=== PATIENT | female | born 2000 | race Caucasian/White ===

== ENCOUNTER 2018-01-15 16:28 | Outpatient (CLI) | payer OTHER, SELFPAY ==
[2018-01-15 16:43] VITALS: BMI 28.1
--- NOTE | 2018-01-15 17:00 | OB.TRI.NOTE ---
- Problem List (1) Vaginal bleeding during , antepartum Status: Acute History of Present Illness Date of Service: 01/15/18 Was patient seen by the physician?: Yes Reason For Visit: BLEEEDING Date of Service: 01/15/18 Final MOHIT: 02/23/18 Final MOHIT Source: US <20 weeks Gestational age: 34 Weeks and 3 Days History of Present Illness: Patient is a At 34.3 wks presenting for heavy postcoital vaginal bleeding. Patient reports a history of placenta previa during this though her last ultrasound at 31+ weeks shows fundal placenta. Patient reports +FM, denies LOF or regular uterine cramping. Patient reports onset of bright heavy red bleeding that soaked through underwear and with wiping. Patient denies passage of large blood clots. Bleeding mostly noted with wiping. Allergies No Known Allergies Allergy (Verified 01/15/18 17:03) - Pertinent Past Medical History Pertinent Past Medical History: See [facility] Record Review of Systems Constitutional: Denies: Chills, Fever, Weight Change HEENT: Denies: Head Aches, Sinus Congestion, Sinus Drainage Cardiovascular: Denies: Chest Pain, Palpitations Respiratory: Denies: Cough, Shortness of breath at rest, Sputum production Gastrointestinal: Denies: Abdominal Pain, Nausea, Vomiting Genitourinary: Denies: Dysuria Gynecological: Reports: Vaginal bleeding Musculoskeletal: Denies: Joint Pain, Joint Tenderness Skin: Denies: Rash, Wounds Neurological: Denies: Numbness, Tingling, Focal weakness Psychiatric: Denies: Anxiety, Depression, Homicidal Ideations, Suicidal Ideations Hematologic/ Lymphatic: Denies: Easy Bruising, Easy Bleeding Physical Exam Vitals: See Nursing Notes for Vitals - VSS, Afebrile General: Alert, Oriented x3, No apparent distress HEENT: Atraumatic, Normocephalic. Negative for: Thyromegaly, Lymphadenopathy Cardiovascular: Regular rate, Regular Rhythm Lungs: Normal air movement Abdomen: Soft, Non Tender, Gravid, Appropriate for Gestational Age - EFW = 4.5# Neurological: Deep Tendon Reflexes 2+/4 and Symmetrical, Neuro grossly intact NEUROLOGY MANAGER: Normal external genitalia. Negative for: Vulvar lesions Cervix Dilation (cm): 0 - Closed by SSE Station: -3 Effacement (%): 0 - +blood in vault and few small clots, no bleeding coming out of cervix NST - FHR Rate Baby A Baseline: 135 Variability:: Moderate Accelerations:: 15 x 15 Decelerations:: None NST Reactive:: Appropriate for gestational age FHR Category:: Category I Uterine Activity:: No contractions noted on tocometer, uterine irritability rarely noted Impression/Plan 17 y/o @ 34+ weeks, postcoital bleeding, Cat I FHT P: 1) Plan for prolonged monitoring x 2 hours 2) Bleeding precautions reviewed, recommend pelvic rest for 1-2 weeks 3) Anticipate discharge to home with continued Cat I FHT Jessica YATES
== END 2018-01-15 19:00 | disposition home or self-care (01) ==
LOC: WPOUT 16:37 → WP 16:38
PROVIDERS: Visit Provider Advanced Practice Midwife
DX: O46.8X3 Other antepartum hemorrhage, third trimester (principal); Z3A.34 34 weeks gestation of pregnancy
CPT/HCPCS: 59025; 99218; G0378

== ENCOUNTER 2018-02-08 16:51 | Inpatient (IN) | payer OTHER, SELFPAY ==
[2018-02-08 17:34] VITALS: BMI 27.3
[2018-02-08] MEDS: Lactated Ringers 1,000 ML 50 ML IV (17:45)
[2018-02-08 17:54] LABS: ROM Internal Control Test YES-OK TO RESULT pt. (Internal QC)
[2018-02-08 17:55] LABS: ROM Patient Test POSITIVE (Negative)
--- NOTE | 2018-02-08 18:28 | PCM.HP.OB ---
History Date of Admission: 02/08/18 Final MOHIT: 02/23/18 Final MOHIT Source: US <20 weeks Gestational age: 37 Weeks and 6 Days History of this : This is a 17 year-old, G [1], P [0], at 37 weeks gestational age presenting to triage for evaluation of SROM @ 1600 for clear fluid. Patient soon after started to have regular ctx and was noted to be 7/80/0 and then quickly progressed to 9/100/+1. course uncomplicated, patient initiated care in 1st trimester x 12 visits. Medical History: Medical History (Last Updated 02/08/18 @ 18:41 by Jessica Woodall CNM) Positive GBS test B95.1 Rubella non-immune status, antepartum O99.89, Z28.3 Seizure disorder G40.909 Allergies No Known Allergies Allergy (Verified 01/15/18 17:03) Home Medications: Home Medications Ferrous Sulfate [Iron] 325 mg PO DAILY 01/15/18 Tablet 1 tab PO DAILY 01/15/18 Ranitidine [Zantac] 150 mg PO DAILY 01/15/18 Smoking Status: Former smoker Alcohol: None Number of Fetus(es): 1 Heart Tracin baseline, moderate variability, + accels, early decels heard during ctx TOCO Analysis: Ctx q 2-3 minutes, palpate moderate to strong History Past Pregnancies: Past Pregnancies Delivery Date Name GA/Weeks Outcome Route Weight Gender Labor Length Anesthesia Delivery Location Provider FOB Labs: O+, Abs Neg, HIV Neg, HepBsAg Neg, Syphilis Neg, GBS positive, Urine tox negative, urine culture negative, GC/CT = neg/neg x 2 (hx of + chlamydia in 1st trimester), 1 hour GTT = 85, H/H = 12.1 --> 10.6 Expected Infant Delivery Method: Spontaneous Vaginal Describe any other labor & delivery plans:: Natural Labor Number of Visits: 12 Review of Systems Constitutional: Denies: Chills, Fever, Weight Change HEENT: Denies: Head Aches, Sinus Congestion, Sinus Drainage Cardiovascular: Denies: Chest Pain, Palpitations Respiratory: Denies: Cough, Shortness of breath at rest, Sputum production Gastrointestinal: Reports: Abdominal Pain. Denies: Nausea, Vomiting Genitourinary: Denies: Dysuria Gynecological: Reports: Vaginal bleeding - c/w bloody show, Vaginal discharge - c/w clear amniotic fluid Musculoskeletal: Denies: Joint Pain, Joint Tenderness Skin: Denies: Rash, Wounds Neurological: Denies: Numbness, Tingling, Focal weakness Psychiatric: Denies: Anxiety, Depression, Homicidal Ideations, Suicidal Ideations Hematologic/ Lymphatic: Denies: Easy Bruising, Easy Bleeding Physical Exam Vitals: See nurse's notes for vital signs General: Alert, Oriented x3, No apparent distress HEENT: Atraumatic, Normocephalic. Negative for: Thyromegaly, Lymphadenopathy Cardiovascular: Regular rate, Regular Rhythm Lungs: Normal air movement Abdomen: Non Tender, Gravid Extremities:: No edema, No tenderness/swelling Neurological: Cranial nerves II-XII grossly intact, Deep Tendon Reflexes 2+/4 and Symmetrical, Neuro grossly intact EXHIBIT SPECIALIST: Normal external genitalia. Negative for: Vulvar lesions Estimated gestational size: Appropriate for gestational size Presentation: Cephalic Cervix Dilation (cm): 9 Station: 1 Effacement (%): 100 Assessment/Plan All Active Problems (Last Updated 02/08/18 @ 18:41 by Jessica Woodall CNM) Vaginal bleeding during , antepartum (Acute) This is a 17 year-old, G [1], P [0], at 37 weeks gestational age, Transition Stage of Labor, Category I FHT. 1) Admit patient - Dr. Oly FIELDS OB back-up provider notified of admission 2) Encourage PO hydration and position changes 3) Anticipate Jessica Woodall APRN-MARA
[2018-02-08 18:58] LABS: Hemoglobin 11.3 g/dl (12.0-15.0); Mean Corp Hgb Conc 33.2 g/gl (32-36); Mean Corpuscular Hgb 28.6 pg (27.0-32.0); Mean Corpuscular Volume 86.1 fL (81-99); Mean Platelet Vol. 10.4 fl (6.2-12.0); Platelet Count 261 K/mm3 (150-450); RBC Distribution Width CV 12.4 % (11.6-14.6); RBC Distribution Width SD 37.8 fl (35.1-43.9); Red Blood Count 3.95 M/mm3 (4.2-5.4); White Blood Count 10.7 K/mm3 (4.4-11.0)
[2018-02-08 19:02] LABS: Scan Indicated on CBC? Y/N NO
[2018-02-08] MEDS: Oxytocin 30 units/NS 500 ml 30 UNITS/500 ML IV.SOLN 999 UNITS IV (19:27)
[2018-02-08] MEDS: Methylergonovine 0.2 MG/ML Ampul IM (19:28)
[2018-02-08] MEDS: miSOPROStol 200 MCG Tablet 800 MCG RECTAL (19:40)
[2018-02-08] MEDS: Oxytocin 30 units/NS 500 ml 30 UNITS/500 ML IV.SOLN 334 UNITS IV (19:47)
--- NOTE | 2018-02-08 20:03 | PCM.OB.VAG ---
Vaginal Delivery Maternal Presentation: Active Labor, Spontaneous Rupture of Membranes Amniotic Membrane Rupture Type: Spontaneous at home Rupture of Membrane time: 02/08/18 @ 1600 Amniotic Fluid Description: Clear Final MOHIT: 02/23/18 Gestational age: 37 Weeks and 6 Days Date of Procedure: 02/08/18 Pre-Operative Diagnosis: PROM, Active Labor Post-Operative Diagnosis: , PPH Surgery/ Procedure Performed: Spontaneous Vaginal Delivery Type of Anesthesia: None Description of Procedure: Patient presented to hospital with spontaneous rupture of membranes for clear fluids noted at 1600. Patient's contractions started soon after and were noted to be q 2-3 minutes apart and patient was 7/80/0 and then quickly progressed to 9/100/+1 and then C/C/+2. Patient pushed well with urge and delivered viable boy over intact perineum at 1918. Baby with vigorous cry and respirations. Baby was placed on maternal abdomen where it was dried and stimulated. Apgars per nursing. Weight pending. Umbilical cord clamped and cut by FOB once it stopped pulsing. Placenta delivered spontaneously via Ambriz mechanism intact with 3VC. Brisk vaginal bleeding noted - bimanual massage initiated. IV pitocin administered per protocol and then rate was increased as brisk bleeding continued. Methergine IM 0.2mg x 1 then given. Vaginal exploration done - no cervical lacerations noted, 1st degree vaginal laceration with good hemostasis. Bladder not distended. Uterus intermittently boggy between fundal massage. Continued bleeding, 800mcg Cytotec [place] given. Total EBL = 600cc. Vaginal laceration repaired in the usual fashion using 3-0 Rapide suture and 1% Lidocaine analgesia. Sponge and needle count correct. Vaginal sweep negative. Baby to breast, bonding and [id number] initiated. Presentation: Vertex, YUE Placental Delivery Description: Spontaneous Placenta Disposition: [facility] Cord Vessel Description: 3 Vessels Cord Entanglement: None Estimated Blood Loss: 600 A gender: Male Episiotomy Description: None Laceration: Midline, Vaginal Extension/lac, 1st degree Medications given after delivery: IV Pitocin, IM Methergin, - - Cytotec 800mg [place] Complications: None
[2018-02-08] MEDS: Oxytocin 30 units/NS 500 ml 30 UNITS/500 ML IV.SOLN 167 UNITS IV (20:17)
--- NOTE | 2018-02-08 20:19 | OP.PCM_ITS ---
Vaginal Delivery Maternal Presentation: Active Labor, Spontaneous Rupture of Membranes Amniotic Membrane Rupture Type: Spontaneous at home Rupture of Membrane time: 02/08/18 @ 1600 Amniotic Fluid Description: Clear Final MOHIT: 02/23/18 Gestational age: 37 Weeks and 6 Days Date of Procedure: 02/08/18 Pre-Operative Diagnosis: PROM, Active Labor Post-Operative Diagnosis: , PPH Surgery/ Procedure Performed: Spontaneous Vaginal Delivery Type of Anesthesia: None Description of Procedure: Patient presented to hospital with spontaneous rupture of membranes for clear fluids noted at 1600. Patient's contractions started soon after and were noted to be q 2-3 minutes apart and patient was 7/80/0 and then quickly progressed to 9/100/+1 and then C/C/+2. Patient pushed well with urge and delivered viable boy over intact perineum at 1918. Baby with vigorous cry and respirations. Baby was placed on maternal abdomen where it was dried and stimulated. Apgars per nursing. Weight pending. Umbilical cord clamped and cut by FOB once it stopped pulsing. Placenta delivered spontaneously via Ambriz mechanism intact with 3VC. Brisk vaginal bleeding noted - bimanual massage initiated. IV pitocin administered per protocol and then rate was increased as brisk bleeding continued. Methergine IM 0.2mg x 1 then given. Vaginal exploration done - no cervical lacerations noted, 1st degree vaginal laceration with good hemostasis. Bladder not distended. Uterus intermittently boggy between fundal massage. Continued bleeding, 800mcg Cytotec [place] given. Total EBL = 600cc. Vaginal laceration repaired in the usual fashion using 3-0 Rapide suture and 1% Lidocaine analgesia. Sponge and needle count correct. Vaginal sweep negative. Baby to breast, bonding and [id number] initiated. Presentation: Vertex, YUE Placental Delivery Description: Spontaneous Placenta Disposition: [facility] Cord Vessel Description: 3 Vessels Cord Entanglement: None Estimated Blood Loss: 600 A gender: Male Episiotomy Description: None Laceration: Midline, Vaginal Extension/lac, 1st degree Medications given after delivery: IV Pitocin, IM Methergin, - - Cytotec 800mg [place] Complications: None
[2018-02-08] MEDS: Ibuprofen 600 MG Tablet PO (22:05)
[2018-02-08 23:50] VITALS: BP 119/63; PULSE 84; RESP 16; TEMP 36.1
[2018-02-09 04:20] VITALS: BP 145/60; PULSE 104; RESP 17; TEMP 36.7
[2018-02-09 06:39] LABS: Hematocrit 26.8 % (37-47); Mean Corp Hgb Conc 33.6 g/gl (32-36); Mean Corpuscular Volume 86.5 fL (81-99); Mean Platelet Vol. 10.5 fl (6.2-12.0); Platelet Count 252 K/mm3 (150-450); RBC Distribution Width CV 12.2 % (11.6-14.6); RBC Distribution Width SD 36.7 fl (35.1-43.9); White Blood Count 15.2 K/mm3 (4.4-11.0)
[2018-02-09 06:42] LABS: Scan Indicated on CBC? Y/N NO
[2018-02-09 08:38] VITALS: BP 102/61; PULSE 80; RESP 16; TEMP 36.6
[2018-02-09 12:00] VITALS: BP 114/72; PULSE 83; RESP 20; TEMP 35.8
[2018-02-09] MEDS: Ibuprofen 600 MG Tablet PO (12:35)
--- NOTE | 2018-02-09 12:54 | PCM.PN.OB ---
Subjective: Doing well per patient and nursing staff. Ambulating and taking PO without difficulty. Voiding and passing flatus. without difficulty. Denies SORENSEN,vis chg's,CP,SOB,increased vaginal bleeding or clots. Pain controlled. D/C home tomorrow. - Physical Exam General: Alert, Oriented x3, Cooperative HEENT: Atraumatic, Normocephalic Lungs: Clear to auscultation, No rhonchi, No wheeze Cardiovascular: Regular rate, Regular Rhythm, No murmurs Abdomen: Tender - Fundus firm 2 below U Extremities: No edema Neurological: Deep Tendon Reflexes 2+/4 and Symmetrical Psych/Mental Status: Normal Affect, Appropriate Vital Signs Temp Pulse Resp BP 96.5 F L 83 20 H 114/72 02/09/18 12:00 02/09/18 12:00 02/09/18 12:00 02/09/18 12:00 Oxygen Delivery Method Room Air Weight: 149 lb 11.102 oz Body Mass Index (BMI) 27.3 Intake and Output for Last 24 Hours 02/07/18 02/08/18 02/09/18 23:59 23:59 23:59 Intake Total 1122 / 1122 Output Total 100 / 100 350 / 350 Balance 1022 / 1022 -350 / -350 Laboratory Tests Past 24 Hrs 02/08/18 02/08/18 02/08/18 17:15 17:45 17:45 WBC 10.7 RBC 3.95 L Hgb 11.3 L Hct 34.0 L MCV 86.1 MCH 28.6 MCHC 33.2 RDW 12.4 RDW Differential 37.8 Plt Count 261 MPV 10.4 Vag Amniotic Fld Detect POSITIVE H Blood Type Cancelled A1 Antigen Typing Cancelled Rho(D) Type Cancelled Antibody Screen Cancelled 02/09/18 02/09/18 06:05 06:05 WBC 15.2 H RBC 3.10 L Hgb 9.0 L Hct 26.8 L MCV 86.5 MCH 29.0 MCHC 33.6 RDW 12.2 RDW Differential 36.7 Plt Count 252 MPV 10.5 Vag Amniotic Fld Detect Blood Type O POSITIVE A1 Antigen Typing Rho(D) Type Antibody Screen NEGATIVE Medical Necessity - Tobacco Use Smoking Status: Former smoker Assessment/Plan All Active Problems (Last Updated 02/08/18 @ 18:41 by Jessica Woodall CNM) Vaginal bleeding during , antepartum (Acute) A: PPD #1 P: 1) Routine care 2) Doing well, pain controlled 3) instructions given
[2018-02-09 16:00] VITALS: BP 105/41; PULSE 79; RESP 16; TEMP 36.4
[2018-02-09 19:50] VITALS: BP 110/64; PULSE 71; RESP 16; TEMP 36.4
[2018-02-10 01:34] VITALS: BP 114/76; PULSE 85; RESP 16; TEMP 36.3; O2SAT 94
[2018-02-10 08:30] VITALS: BP 124/59; PULSE 90; RESP 16; TEMP 36.7; O2SAT 97
--- NOTE | 2018-02-10 08:50 | DCINST_ITS ---
Discharge Diet: No Restrictions Discharge Activity: Return to Normal Activity, May not drive while taking narcotic pain medications., May Shower May resume sexual activity in: 4-6 weeks Additional Activity Instructions:: Nothing in the vagina for 4-6 weeks. You may return to work/school in 6 weeks. Call your doctor if your incision/area has: Continuous Slow Oozing, Sudden Increased Bleeding, Increased Pain/ Swelling, Increased Redness, Foul Smelling Discharge Call your doctor if you observe: Fever of 101 or Higher, Inability to urinate, Inability to have a bowel movement, Using more than one pad per hour Additional Instructions: If you experience any of the following, contact your healthcare provider. * Bleeding that soaks a pad every hour for 2 hours * Fever 100.4 or higher * Unrelieved incision or abdominal pain * Swelling, redness, discharge or bleeding from your incision or episiotomy site * Your incision begins to separate * Problems urinating (including inability to urinate or burning while urinating). * Visual changes * Severe headache * Flu-like symptoms * Pain or redness in one of both of your breasts * Pain, warmth, tenderness or swelling in your legs, especially the calf area * Frequent nausea and vomiting * Symptoms of depression or anxiety If you experience any of the following, call 911 or go to the nearest Emergency Room. * Chest pain * Problems breathing * Seizure activity * Partial or complete paralysis of a body part, slurred speech, weakness or drooping of the face, or a sudden inability to walk or hold your balance Allergies/Adverse Reactions: Allergies doxycycline Allergy (Verified 02/08/18 20:10) Hives Medications to take at Discharge Tablet 1 tab PO DAILY 01/15/18 Please Follow Up With: Jessica Woodall CNM When: Call to make an appointment with your provider in 2 weeks and 6 weeks. If you had elevated Blood Pressure or 4th degree laceration you will need to be seen in 2 weeks. Test Results: Test results from this visit will be discussed in further detail at your follow- up appointment, if applicable. Proposed Discharge Date: 02/10/18
--- NOTE | 2018-02-10 08:50 | PCM.PN.OB ---
Subjective: Patient sitting up in bed without complaints. Patient reports no issues with urination or ambulation. Denies SORENSEN, scotoma or dizziness. Patient reports she has transitioned baby to formula and has stopped offering colostrum/breastmilk at this time. Patient desires discharge to home today. Objective: Nipples without cracks, blisters, erythema Abdomen NT x 4 quadrants, FF midline 4FB below umbilicus +2/4 reflexes in LE, no edema Perineum intact, scant rubra lochia Negative calf tenderness to palpation - Physical Exam General: Alert, Oriented x3, Cooperative HEENT: Atraumatic, Normocephalic Neck: Supple Lungs: Normal air movement Cardiovascular: Regular rate, Regular Rhythm, No murmurs Abdomen: Soft, Non Tender Extremities: No edema, Capillary Refill Less than 3 Seconds Skin: No rashes, No breakdown Musculoskeletal: No Tenderness to Palpation of Joints or Extremities Neurological: Cranial nerves II-XII grossly intact Psych/Mental Status: Normal Affect, Appropriate Vital Signs Temp Pulse Resp BP Pulse Ox 98.0 F 90 16 124/59 H 97 02/10/18 08:30 02/10/18 08:30 02/10/18 08:30 02/10/18 08:30 02/10/18 08:30 Oxygen Delivery Method Room Air Weight: 149 lb 11.102 oz Body Mass Index (BMI) 27.3 Intake and Output for Last 24 Hours 02/08/18 02/09/18 02/10/18 23:59 23:59 23:59 Intake Total 1122 / 1122 Output Total 100 / 100 350 / 350 Balance 1022 / 1022 -350 / -350 Laboratory Tests Past 24 Hrs 02/09/18 06:05 Blood Type O POSITIVE Antibody Screen NEGATIVE Medical Necessity - Tobacco Use Smoking Status: Former smoker Assessment/Plan All Active Problems (Last Updated 02/08/18 @ 18:41 by Jessica Woodall CNM) Vaginal bleeding during , antepartum (Acute) 17 y/o now, s/p , PPD #2, Normal PP Course P: 1) Discharge to home pending discharge 2) Anticipatory PP teaching done 3) RTC to [facility] office in 2 and 6 week PP Jessica YATES
[2018-02-10] MEDS: Ibuprofen 600 MG Tablet PO (10:32)
--- NOTE | 2018-02-10 11:59 | CASEMGMT ---
Social Work Assessment Referral Date: 02/10/18 Date of Assessment: 02/10/18 Reason for Consult: New mom, resources Informant: [place] Information obtained from: Medical record, MOB and FOB. MOB is alert and oriented x4 and presents with a pleasant affect as evidenced by smiling and willingness to participate in assessment. Living Arrangements: MOB and FOB live together in [place]. No other children in the home, and this is their first child. Education: MOB completed high school. Able to read and write, and denies any comprehension issues. Financial: MOB and FOB report financial stability. Deny any concerns. Not eligible for [facility] d/t income, and have medical insurance through their employer. MOB will have 6 weeks off, and FOB will have 3 weeks off. Primary Caregiver: MOB switched her shift, so she and FOB will be on opposite shift and will be the caregivers for infant. Supports: Reports that MOB's mother live in [place] (1 hr away), and FOB's parents live in [place]. Feel that they have adequate supports, and DAILY identifies significant other, Scientologist, and her mother as her primary supports. Social/Family Stressors: Both MOB and FOB deny stressors at this time. Mental Health Hx: Denies mental health diagnoses or symptoms of anxiety/depression. Educated to PPD and provide with information. Recommend that FOB be aware of symptoms as well. Understanding expressed. Substance Use Hx: DAILY reports hx of tobacco use in past, but has not throughout and does not intend to restart. ASSESSMENT: MOB presents with pleasant affect. FOB is holding infant upon entry and both are sitting in the hospital bed with the infant gazing at him. 's name is Otto. MOB and FOB are both employed FT and have paid time off. They will be the primary caregivers and have alternative shifts so that they will not require a clinical education assistant. MOB states that she will be bottle-feeding, but would like a pump. Informed MOB's RN who will notify customer sales consultant. They report to have all necessary supplies including crib, car seat, clothes, diapers, bottles, etc. They have access to transportation and 's first racecar driver appointment is tomorrow, Sunday 02/11. No concerns with living arrangements or MOB/FOB's ability for care for . Educate to community resources such as counseling, WIC, and [facility]. MOB is not eligible for WIC d/t income. She declined a referral to [facility] at this time, but accepted information. No concerns of substance abuse present. Anticipate discharge home this date around 1400. PLAN: Home with infant this date with support of significant other. Abena Holden, RETURNED GOODS REPAIRER, TRUCKING SUPERVISOR
[2018-02-10 13:42] VITALS: BP 108/50; PULSE 91; RESP 16; TEMP 36.6
== END 2018-02-10 15:35 | disposition home or self-care (01) | DRG 806 ==
LOC: WPOUT 17:09 → WP 17:28
PROVIDERS: Admitting Provider Obstetrics & Gynecology; Referring Provider Advanced Practice Midwife; Visit Provider Obstetrics & Gynecology
DX: O42.02 Full-term premature rupture of membranes, onset of labor within 24 hours of rupture (principal); O71.4 Obstetric high vaginal laceration alone; Z37.0 Single live birth; O98.82 Other maternal infectious and parasitic diseases complicating childbirth; Z3A.37 37 weeks gestation of pregnancy; B95.1 Streptococcus, group B, as the cause of diseases classified elsewhere; Z87.891 Personal history of nicotine dependence
CPT/HCPCS: 59025; 59050; 84112; 85027; 86850; 86900; 99218; J7120; G0378

== ENCOUNTER 2019-04-30 03:35 | Outpatient (CLI) | payer MEDICAID, SELFPAY ==
[2019-04-30 04:04] VITALS: BMI 28.7
[2019-04-30 04:26] LABS: Bacteria 0 SEEN /hpf (None Seen); Mucous, Urine 0 SEEN /hpf (<or=2+); Red Blood Cells-Urine 0 SEEN /hpf (0-5)
[2019-04-30 04:32] LABS: Color, Urine Yellow (Yellow); Glucose, Dipstick Normal (Normal); Ketone-Dipstick Negative (Negative); Leukocyte Esterase-Dipstick 100 /ul (Negative); Nitrite-Dipstick Negative (Negative); Occult Blood-Urine Negative /ul (Negative); Protein-Dipstick Negative (Negative); Urine Bilirubin Dipstick Negative (Negative); Urine Clarity Clear (Clear); Urine Urobilinogen Normal (Normal)
[2019-04-30 04:47] LABS: Squamous Epithelial Cells - UA 0-5 SEEN /hpf (5-10); White Blood Cells 0-5 SEEN /hpf (0-5)
--- NOTE | 2019-05-03 17:45 | OB.TRI.PN_ITS ---
Progress Notes Date of Service: 05/03/19 Progress Note: 19 year old 37w0d with MOHIT: 05/21/19 presented for left back, buttock and butt pain. No contractions, LOF, or VB. O: FHT:130, moderate variability, accels, reactive TOCO: none A: Back pain P: 1) No signs of PTL. 2) D/C home Laboratory Studies: Laboratory Tests 04/30/19 Range/Units 04:15 Urine Color Yellow (Yellow) Urine Clarity Clear (Clear) Urine pH 6.0 (5.0 - 8.0) Ur Specific [place] 1.020 (1.002-1.030) Urine Protein Negative (Negative) mg/dl Urine Glucose (UA) Normal (Normal) mg/dl Urine Ketones Negative (Negative) mg/dl Urine Occult Blood Negative (Negative) /ul Urine Nitrite Negative (Negative) Urine Bilirubin Negative (Negative) mg/dL Urine Urobilinogen Normal (Normal) mg/dl Ur Leukocyte Esterase 100 H (Negative) /ul Urine RBC 0 SEEN (0-5) /hpf Urine WBC 0-5 SEEN (0-5) /hpf Ur Squamous Epith Cells 0-5 SEEN (5-10) /hpf Urine Bacteria 0 SEEN (None Seen) /hpf Urine Mucus 0 SEEN (<or=2+) /hpf
== END 2019-04-30 05:10 | disposition home health service (06) ==
LOC: WPOUT 03:54 → OBT 03:56
PROVIDERS: Visit Provider Advanced Practice Midwife
DX: O26.893 Other specified pregnancy related conditions, third trimester (principal); M54.9 Dorsalgia, unspecified; Z3A.37 37 weeks gestation of pregnancy
CPT/HCPCS: 59025; 59050; 81001; 87086; 87088; 99218; G0378

== ENCOUNTER 2019-05-12 14:15 | Outpatient (CLI) | payer MEDICAID, SELFPAY ==
[2019-05-12 14:49] VITALS: BMI 28.3
[2019-05-12 15:07] LABS: ROM Internal Control Test YES-OK TO RESULT pt. (Internal QC); ROM Patient Test Negative (Negative)
[2019-05-12 15:35] VITALS: RESP 16
--- NOTE | 2019-05-13 13:55 | OB.TRI.NOTE ---
History of Present Illness Date of Service: 05/12/19 Was patient seen by the physician?: No Reason For Visit: R/O DECREASED MOVEMENT Final MOHIT: 05/21/19 Final MOHIT Source: US <20 weeks Gestational age: 38 Weeks and 5 Days Allergies doxycycline Allergy (Verified 05/12/19 14:48) Hives - Pertinent Past Medical History Medical History: Past Medical History (Last Updated 02/08/18 @ 18:41 by Jessica Woodall CNM) Positive GBS test Rubella non-immune status, antepartum Seizure disorder Laboratory Studies: Laboratory Tests 05/12/19 Range/Units 14:33 Vag Amniotic Fld Detect Negative (Negative) Physical Exam Vitals: Vital Signs Resp 16 05/12/19 15:35 NST - FHR Rate Baby A Baseline: 130 Variability:: Moderate Accelerations:: 15 x 15 Decelerations:: None NST Reactive:: Yes Uterine Activity:: quiet Impression/Plan Reactive NST for decreased FM
[2019-05-22 20:28] VITALS: BP 123/71; PULSE 103
== END 2019-05-12 15:35 | disposition home or self-care (01) ==
LOC: WPOUT 14:23 → OBT 14:23
PROVIDERS: Visit Provider Obstetrics & Gynecology
DX: O36.8130 Decreased fetal movements, third trimester, not applicable or unspecified (principal); Z3A.38 38 weeks gestation of pregnancy
CPT/HCPCS: 59025; 59050; 84112; 99218; G0378

== ENCOUNTER 2019-05-22 22:30 | Inpatient (IN) | payer MEDICAID, SELFPAY ==
[2019-05-22 21:47] VITALS: TEMP 98.2
[2019-05-22 21:55] VITALS: BMI 28.3
[2019-05-22 23:00] LABS: Absolute Lymphocyte Count 2.12 X10^3/uL (0.83-4.51); Absolute Neutrophil Count 7.5 X10^3/uL (2.0-7.7); Basophil# 0.02 X10^3/uL; Basophil% 0.2 % (0-1); Eosinophils% 1.9 % (0-5); Hematocrit 31.9 % (37-47); Lymphocyte # 2.12 X10^3/ul (4.0); Lymphocyte % 20.1 % (19-41); Mean Corp Hgb Conc 31.3 g/dL (32-36); Mean Corpuscular Hgb 25.6 pg (27.0-32.0); Mean Corpuscular Volume 81.8 fL (81-99); Mean Platelet Vol. 10.4 fl (6.2-12.0); Monocyte# 0.63 X10^3/uL; NRBC Flagged by Analyzer 0 % (0-5); Neutrophil # 7.53 X10^3/uL (2.7-7.7); Neutrophil % 71.5 % (47-70); Platelet Count 230 K/mm3 (150-450); RBC Distribution Width CV 13.7 % (11.6-14.6); RBC Distribution Width SD 40.9 fl (35.1-43.9); White Blood Count 10.5 K/mm3 (4.4-11.0)
[2019-05-22] MEDS: fentaNYL 100 MCG/2 ML Ampul IV (23:36)
[2019-05-22] MEDS: 0.9% Saline Lock 10 ML Syringe IV (23:40)
[2019-05-22 23:56] VITALS: BP 125/71; PULSE 87
[2019-05-23] VITALS (15 sets, daily range): BP systolic 92–126; BP diastolic 50–64; PULSE 74–115; RESP 16–18; TEMP 36.2–37.1; O2SAT 98–99
[2019-05-23] MEDS: Mag Hydrox/Al Hydrox/Simeth 30 ML UDC PO (00:03)
--- NOTE | 2019-05-23 00:11 | HP.PCM_ITS ---
- Problem List (1) Active labor at term Status: Acute (2) Rubella non-immune status, antepartum Status: Acute (3) History of depression Status: Acute (4) Short interval between pregnancies affecting , antepartum Status: Acute (5) Anemia affecting Status: Acute History Date of Admission: 02/08/18 Final MOHIT: 05/21/19 Final MOHIT Source: US <20 weeks Gestational age: 40 Weeks and 2 Days History of this : This is a 19 year-old, G [], P [], at 40 weeks gestational age. Medical History: Medical History (Last Updated 02/08/18 @ 18:41 by Jessica Woodall CNM) Positive GBS test B95.1 Rubella non-immune status, antepartum O99.89, Z28.3 Seizure disorder G40.909 Allergies doxycycline Allergy (Verified 05/22/19 21:54) Hives Smoking Status: Former smoker Alcohol: None Number of Fetus(es): 1 NST - FHR Rate Baby A Baseline: 145 Variability:: Moderate Accelerations:: 15 x 15 Decelerations:: Variable FHR Category:: Category II Uterine Activity:: Every 2-3 minutes, strong History Past Pregnancies: Past Pregnancies Delivery Date Name GA/ Weeks Outcome Route Wt Sex Labor Length Anesthesia Delivery Location Provider FOB Labs: Mom's Labs & Results 05/22/19 05/22/19 22:45 22:45 WBC 10.5 RBC 3.90 L Hgb 10.0 L Hct 31.9 L MCV 81.8 MCH 25.6 L MCHC 31.3 L RDW Std Deviation 40.9 RDW Coeff of Agata 13.7 Plt Count 230 MPV 10.4 Immature Gran % (Auto) 0.300 Neut % (Auto) 71.5 H Lymph % (Auto) 20.1 Sublette % (Auto) 6.0 Eos % (Auto) 1.9 Baso % (Auto) 0.2 Absolute Neuts (auto) 7.5 Absolute Lymphs (auto) 2.12 Nucleated RBC % 0 Blood Type O POSITIVE Antibody Screen NEGATIVE Course Did the patient receive Yes care? Labs Blood Type: O RH: POSITIVE RPR/VDRL/Syphilis Nonreactive Rubella status Non-immune HbSAg Negative Chlamydia Negative Gonorrhea Negative HIV/AIDS Non-Reactive Group B Strep: Negative Current Obstetrical History Gestational Diabetes No Incompetent Cervix No Infertility No IUGR No Macrosomia No Hypertension/Pre-eclampsia No Placenta Previa/Abruption No PTL/PROM No Uterine anomaly No Oligohydramnios No Polyhydramnios No Multiple gestation No Past Medical History Asthma No Diabetes No Hypertension No Heart disease No Mitral valve prolapse No Neurologic/Seizure disorder/ No Migraines Kidney disease No Liver disease No Varicosities No Clotting disorders/Hx of DVT No Thyroid Dysfunction No Other medical diseases No Psychiatric disorders No Major trauma No Abnormal PAP smear No Sleep apnea No Mammogram in the last 2 years No Social History Marital Status: SINGLE Alleged father Elvin Helton Hx Smoking No Smoking Status Former smoker Expected Infant Delivery Method: Spontaneous Vaginal Review of Systems Constitutional: Denies: Chills, Fever, Weight Change HEENT: Denies: Head Aches, Sinus Congestion, Sinus Drainage Cardiovascular: Denies: Chest Pain, Palpitations Respiratory: Denies: Cough, Shortness of breath at rest, Sputum production Gastrointestinal: Denies: Nausea, Vomiting Genitourinary: Denies: Dysuria Psychiatric: Denies: Anxiety, Depression, Homicidal Ideations, Suicidal Ideations Physical Exam General: Alert, Oriented x3, Cooperative HEENT: Atraumatic, Normocephalic Cardiovascular: Regular rate, Regular Rhythm, No murmurs Lungs: Clear to auscultation, Normal air movement, No rhonchi, No wheeze Abdomen: Non Tender, Gravid Extremities:: No edema Neurological: Deep Tendon Reflexes 2+/4 and Symmetrical. Negative for: Clonus KITCHEN STEWARDESS: Normal external genitalia Estimated gestational size: Appropriate for gestational size Presentation: Cephalic Cervix Dilation (cm): 7 - AROM for small amount of clear fluid Station: -1 Effacement (%): 90 Assessment/Plan All Active Problems (Last Updated 02/08/18 @ 18:41 by Jessica Woodall CNM) Vaginal bleeding during , antepartum (Acute) Active labor at term (Acute) Vaginal delivery (Acute) Rubella non-immune status, antepartum (Acute) History of depression (Acute) Short interval between pregnancies affecting , antepartum (Acute) Anemia affecting (Acute) This is a 19 year-old, G [2], P [1001], at 40 weeks gestational age. A: Active Labor Category 2 FHT P: 1) Admit to labor and delivery, routine labs 2) Continuous monitoring due to category 2 FHT 3) Patient desires no epidural. Fentanyl for pain. 4) Labor support at bedside 5) Patient agreeable to AROM, tolerated well. 6) Collaborative physician notified of patient in labor and status.
[2019-05-23] MEDS: Lactated Ringers 1,000 ML 200 ML IV (00:18)
[2019-05-23] MEDS: Oxytocin 30 units/NS 500 ml 30 UNITS/500 ML IV.SOLN 334 UNITS IV (01:15)
--- NOTE | 2019-05-23 01:23 | PCM.OPRPT ---
Problem List (1) Active labor at term Status: Acute (2) Vaginal delivery Status: Acute Vaginal Delivery Maternal Presentation: Active Labor Amniotic Membrane Rupture Type: Artificial Amniotic Fluid Description: Clear Final MOHIT: 05/21/19 Final MOHIT Source: US <20 weeks Gestational age: 40 Weeks and 2 Days Date of Procedure: 05/23/19 Pre-Operative Diagnosis: Active Labor Post-Operative Diagnosis: Vaginal Delivery Surgery/ Procedure Performed: Spontaneous Vaginal Delivery Type of Anesthesia: None Description of Procedure: Progressed to 9 cm with repetitive variable decelerations with contractions. Increased pelvic pressure and progressed to complete and pushing efforts started. of viable male over intact perineum, APGARS 9,10. head delivered with body forthcoming, CAN x1, delivered through. Placed on maternal abdomen, strong cry. Mouth and nares wiped for secretions. Pitocin started for active 3rd stage management. Cord clamped and cut after pulsations ceased. Placenta delivered with maternal effort via rodrigo, intact 3 vessel cord. Perineum inspected and intact. Vaginal sweep completed. Fundus firm, hemostasis achieved, EBL 450ml. Sponge and instrument count correct. Planning to breastfeed. Mom and baby stable. notified of delivery. Presentation: Vertex Placental Delivery Description: Spontaneous Placenta Disposition: [facility] Cord Vessel Description: 3 Vessels Cord Entanglement: Around neck x 1, loose Estimated Blood Loss: 450ml Infant A gender: Male (1 minute): 9 (5 minute): 10 Episiotomy Description: None Laceration: None Medications given after delivery: IV Pitocin
[2019-05-23] MEDS: Ibuprofen 600 MG Tablet PO ×3 (02:49→21:43)
[2019-05-23] MEDS: Senna/Docusate Sodium 1 Tablet PO (11:38)
[2019-05-24 01:07] VITALS: BP 112/58; PULSE 68; RESP 18; TEMP 36.6
[2019-05-24 03:46] LABS: Absolute Lymphocyte Count 3.97 X10^3/uL (0.83-4.51); Absolute Neutrophil Count 6.5 X10^3/uL (2.0-7.7); Basophil# 0.05 X10^3/uL; Basophil% 0.4 % (0-1); Eosinophil# 0.24 X10^3/uL; Eosinophils% 2.1 % (0-5); Hematocrit 31.3 % (37-47); Hemoglobin 9.8 g/dL (12.0-15.0); Lymphocyte # 3.97 X10^3/ul (4.0); Lymphocyte % 34.5 % (19-41); Mean Corp Hgb Conc 31.3 g/dL (32-36); Mean Corpuscular Hgb 26.1 pg (27.0-32.0); Mean Corpuscular Volume 83.2 fL (81-99); Mean Platelet Vol. 10.3 fl (6.2-12.0); Monocyte# 0.67 X10^3/uL; Monocyte% 5.8 % (0-10); NRBC Flagged by Analyzer 0 % (0-5); Neutrophil # 6.53 X10^3/uL (2.7-7.7); Neutrophil % 56.8 % (47-70); Platelet Count 248 K/mm3 (150-450); RBC Distribution Width CV 13.9 % (11.6-14.6); RBC Distribution Width SD 41.5 fl (35.1-43.9); Red Blood Count 3.76 M/mm3 (4.2-5.4); White Blood Count 11.5 K/mm3 (4.4-11.0)
[2019-05-24 08:33] VITALS: BP 109/59; PULSE 77; RESP 14; TEMP 36.7
--- NOTE | 2019-05-24 10:44 | DCINST_ITS ---
Discharge Diet: No Restrictions Discharge Activity: Return to Normal Activity, May not drive while taking narcotic pain medications., May Shower May resume sexual activity in: 4-6 weeks Additional Activity Instructions:: Nothing in the vagina for 4-6 weeks. You may return to work/school in 6 weeks. Call your doctor if your incision/area has: Continuous Slow Oozing, Sudden Increased Bleeding, Increased Pain/ Swelling, Increased Redness, Foul Smelling Discharge Additional Instructions: If you experience any of the following, contact your healthcare provider. * Bleeding that soaks a pad every hour for 2 hours * Fever 100.4 or higher * Unrelieved incision or abdominal pain * Swelling, redness, discharge or bleeding from your incision or episiotomy site * Your incision begins to separate * Problems urinating (including inability to urinate or burning while urinating). * Visual changes * Severe headache * Flu-like symptoms * Pain or redness in one of both of your breasts * Pain, warmth, tenderness or swelling in your legs, especially the calf area * Frequent nausea and vomiting * Symptoms of depression or anxiety If you experience any of the following, call 911 or go to the nearest Emergency Room. * Chest pain * Problems breathing * Seizure activity * Partial or complete paralysis of a body part, slurred speech, weakness or drooping of the face, or a sudden inability to walk or hold your balance Allergies/Adverse Reactions: Allergies doxycycline Allergy (Verified 05/22/19 21:54) Hives Please Follow Up With: Abena Cavanaugh, [facility] - [phone] When: Call to make an appointment in our office in 1-2 and 6 weeks or as needed Primary Care Physician: Care Physician,No Primary [Primary Care Provider] - Test Results: Test results from this visit will be discussed in further detail at your follow- up appointment, if applicable.
--- NOTE | 2019-05-24 10:44 | PCM.DCVAG ---
Discharge Diet: No Restrictions Discharge Activity: Return to Normal Activity, May not drive while taking narcotic pain medications., May Shower May resume sexual activity in: 4-6 weeks Additional Activity Instructions:: Nothing in the vagina for 4-6 weeks. You may return to work/school in 6 weeks. Call your doctor if your incision/area has: Continuous Slow Oozing, Sudden Increased Bleeding, Increased Pain/ Swelling, Increased Redness, Foul Smelling Discharge Additional Instructions: If you experience any of the following, contact your healthcare provider. Bleeding that soaks a pad every hour for 2 hours Fever 100.4 or higher Unrelieved incision or abdominal pain Swelling, redness, discharge or bleeding from your incision or episiotomy site Your incision begins to separate Problems urinating (including inability to urinate or burning while urinating). Visual changes Severe headache Flu-like symptoms Pain or redness in one of both of your breasts Pain, warmth, tenderness or swelling in your legs, especially the calf area Frequent nausea and vomiting Symptoms of depression or anxiety If you experience any of the following, call 911 or go to the nearest Emergency Room. Chest pain Problems breathing Seizure activity Partial or complete paralysis of a body part, slurred speech, weakness or drooping of the face, or a sudden inability to walk or hold your balance Allergies/Adverse Reactions: Allergies doxycycline Allergy (Verified 05/22/19 21:54) Hives Please Follow Up With: Abena Cavanaugh, [facility] - [phone] When: Call to make an appointment in our office in 1-2 and 6 weeks or as needed Primary Care Physician: Care Physician,No Primary [Primary Care Provider] - Test Results: Test results from this visit will be discussed in further detail at your follow-up appointment, if applicable.
--- NOTE | 2019-05-24 10:44 | PCM.PN.OB ---
Patient Problems: Active and Suspected Problems (Last Updated 02/08/18 @ 18:41 by Jessica Woodall CNM) Active labor at term (Acute) Vaginal delivery (Acute) Rubella non-immune status, antepartum (Acute) History of depression (Acute) Short interval between pregnancies affecting , antepartum (Acute) Anemia affecting (Acute) Subjective: Pain well controlled. Average lochia. No other complaints today. - Physical Exam Vitals/I&O's: Vital Signs Temp Pulse Resp BP Pulse Ox 98.1 F 77 14 109/59 L 99 05/24/19 08:33 05/24/19 08:33 05/24/19 08:33 05/24/19 08:33 05/23/19 11:38 Oxygen Delivery Method Room Air Weight: 68.039 kg Body Mass Index (BMI) 28.3 Intake and Output for Last 24 Hours 05/22/19 05/23/19 05/24/19 23:59 23:59 23:59 Intake Total 690 / 690 Balance 690 / 690 General: Alert, Cooperative, No apparent distress Laboratory Results 05/24/19 03:38: WBC 11.5 H, RBC 3.76 L, Hgb 9.8 L, Hct 31.3 L, MCV 83.2, MCH 26.1 L, MCHC 31.3 L, RDW Std Deviation 41.5, RDW Coeff of Agata 13.9, Plt Count 248, MPV 10.3, Immature Gran % (Auto) 0.400, Neut % (Auto) 56.8, Lymph % (Auto) 34.5, Dickenson % (Auto) 5.8, Eos % (Auto) 2.1, Baso % (Auto) 0.4, Absolute Neuts (auto) 6.5, Absolute Lymphs (auto) 3.97, Nucleated RBC % 0 Current Medications Acetaminophen (Tylenol) 1,000 mg PO Q8H PRN PRN PRN Reason: Pain Score 1-3/10 Bisacodyl (Dulcolax) 10 mg RECTAL UD PRN PRN Reason: If no BM Dibucaine (Dibucaine) 1 applic TOPICAL TID PRN PRN; Protocol PRN Reason: Discomfort Hydrocortisone (Hytone) 1 applic TOPICAL TID PRN PRN; Protocol PRN Reason: Discomfort Ibuprofen (Motrin) 600 mg PO Q6H PRN PRN PRN Reason: Pain Score 1-3/10 Last Admin: 05/23/19 21:43 Dose: 600 mg Documented by: Methylergonovine Maleate (Methergine) 0.2 mg IM X1 PRN PRN Reason: Excess bleeding/uterine atony Ondansetron HCl (Zofran) 4 mg IV Q4H PRN PRN PRN Reason: Nausea Senna/Docusate Sodium (Senokot-S, Emmy-Colace) 1 - 2 tablet PO DAILY PRN PRN PRN Reason: Constipation Last Admin: 05/23/19 11:38 Dose: 1 tablet Documented by: Simethicone (Mylicon) 80 mg PO PCHS PRN PRN Reason: Indigestion/Stomach pain Sodium Chloride () 5 - 15 ml IV UD PRN PRN Reason: SALINE FLUSH Medical Necessity - Tobacco Use Smoking Status: Former smoker Assessment/Plan All Active Problems (Last Updated 02/08/18 @ 18:41 by Jessica Woodall CNM) Vaginal bleeding during , antepartum (Acute) Active labor at term (Acute) Vaginal delivery (Acute) Rubella non-immune status, antepartum (Acute) History of depression (Acute) Short interval between pregnancies affecting , antepartum (Acute) Anemia affecting (Acute) day #1 status post vaginal delivery. is breast-feeding and doing well. Patient would like to be discharged home today. She declines any prescriptions. Continue vitamins and follow-up in the office in 1-2 in 6 weeks or as needed.
[2019-05-24 15:00] VITALS: BP 118/66; PULSE 81; RESP 16; TEMP 36.6
== END 2019-05-24 16:53 | disposition home or self-care (01) | DRG 560 ==
LOC: WPOUT 22:35 → WP 22:35
PROVIDERS: Admitting Provider Advanced Practice Midwife; Visit Provider Advanced Practice Midwife
DX: O99.02 Anemia complicating childbirth (principal); D64.9 Anemia, unspecified; O48.0 Post-term pregnancy; Z3A.40 40 weeks gestation of pregnancy; Z37.0 Single live birth
CPT/HCPCS: 59025; 59050; 85025; 85027; 86850; 86900; 86901; 99218; J7120; A4216; G0378

== ENCOUNTER 2024-04-15 14:12 | Emergency (ER) | payer MEDICAID, SELFPAY ==
[2024-04-15 14:13] VITALS: BP 105/80; PULSE 90; RESP 18; TEMP 36.6; O2SAT 96; BMI 22.8
[2024-04-15 14:51] LABS: Hematocrit 34.9 % (37-47); Hemoglobin 11.4 g/dL (12.0-15.0)
[2024-04-15 14:57] LABS: Internal QC Validated? YES +Cl - CLEAR BKGD; Pregnancy, Serum, hCG Quali. NEGATIVE Negative
--- NOTE | 2024-04-15 15:01 | EDS_ITS ---
HPI HPI - Female History of Present Illness Chief Complaint: Vag Bleeding Detail of Chief Complaint: Vaginal bleeding that started last evening at work Informant: patient Pain Pain: Negative for Pelvic Pain, Vulvar Pain or Vaginal Pain Bleeding Issue: Positive for Vaginal bleeding; Negative for Passing clots or Passing tissue Onset: Yesterday Context: Sudden Onset Timing: Continuous Current Severity: Heavy (And blood is redder than normal.) Maximum Severity: Heavy Associated Symptoms Associated Symptoms: Negative for Dysuria, Frequency, Urgency, Hematuria, Missed Period or Irregular Period Last known menstrual period: Patient was treated [facility] for ruptured ectopic March 16 Sexually: Positive for Inactive P: 2 Narrative Narrative: Patient is a 24-year-old G3, P2 female who had an ruptured ectopic treated at Facility on March 16. Attempt initially at laparoscopic surgery was unsuccessful because of the amount of blood and unable to visualize the ectopic . She had an open technique. The right fallopian tube was removed according the patient. She has not been sexually active in the past week. She states she was 7 weeks gestation when the event occurred. She denies orthostatic symptoms. She denies dysuria, frequency, urgency or hematuria. Denies breast fullness or tenderness.she denies pain repeat for to the shoulders. Prior similar symptoms: No Recent Illness/Hospital[facility]: [facility] Medical History Rubella non-immune status, antepartum Positive GBS test Seizure disorder Allergy/AdvReac Type Severity Reaction Status Date / Time doxycycline Allergy Hives Verified 04/15/24 14:13 Social History Smoking Status: Former smoker ROS ROS ED Eyes Eyes: Denies change in vision Cardiovascular Cardiovascular: Reports other Details: Denies orthostatic symptoms. ; Denies chest pain or palpitations Respiratory/Chest Respiratory/Chest: Denies cough, dyspnea or dyspnea on exertion Gastrointestinal Gastrointestinal: Reports abdominal pain; Denies constipation, diarrhea, melena, nausea or vomiting Genitourinary Genitourinary ED: Denies dysuria, hematuria or urinary frequency Musculoskeletal Musculoskeletal: Denies arthralgias, myalgias or neck pain Integumentary Denies rash Neurologic Neurologic: Denies paresthesias or weakness Hematologic/Lymphatic Hematologic/Lymphatic: Denies easy bleeding or easy bruising EXAM Physical Exam Const Vital Signs: 04/15/24 14:13 Temperature 98 F Temperature Source Temporal Pulse Rate 90 Respiratory Rate 18 Blood Pressure 105/80 Blood Pressure Mean 88 Pulse Ox 96 Oxygen Delivery Method Room Air Positive well nourished and well developed General Appearance ED: well developed and NAD; Negative for odor of alcohol detected HEENT Reports moist mucous membranes HEENT Narrative: Head is atraumatic and normocephalic. Ears are normal. Eyes PERRL and EOMs intact bilaterally General Eye ED: Negative for pale conjunctiva or scleral icterus Neck no lymphadenopathy, supple and no JVD Resp normal respiratory effort and clear to auscultation bilaterally Cardio regular rate, regular rhythm, S1 normal heart sound, no murmurs and no JVD GI normal to inspection, nondistended, normoactive bowel sounds, soft to palpation, non-distended and no masses; Negative for non-tender Palpation: tender other (Inferior to the umbilicus to the pubic symphysis.); Negative for rigid, hepatomegaly, splenomegaly or mass Narrative: External genitalia normal. There is blood noted at the introitus. There is approximate 5 cc of old blood in the vaginal vault. There is no abnormality of the cervical or vaginal mucosa. Bimanual exam reveals minimal discomfort of with pressure against the cervix. Uterus is normal size and mildly tender. There is no adnexal mass fullness or tenderness right or left. There is no discomfort with pressure against the bladder. Back/Spine no CVA tenderness Extremity normal to inspection and full ROM Neuro oriented x3 and CN's II-XII intact bilaterally Sensorium / Orientation: alert Psych mental status grossly normal Skin no rashes or lesions noted and no wounds MDM MDM MDM Narrative Medical decision making narrative: Will obtain test. Also H&H. Pelvic exam is needed. Differential diagnosis is bleeding due to , bleeding due to menses, bleeding due to to uterine/cervical vaginal pathology. Lab Data Attestation: I reviewed the patient's lab results. Lab results narrative: H&H is 11.4 and 34.9. This is similar to s results. Serum test was negative. Labs: Laboratory Results - last 24 hr 04/15/24 14:40 Hgb 11.4 L Hct 34.9 L Serum , Qual NEGATIVE Treatment and Re-Evaluation Narrative: Patient was informed in light of the test results exam this represents in all likelihood menses bleeding that not her normal bleeding because of recent ectopic . Discharge Plan Triage Chief Complaint: Vag Bleeding ED Provider: Brando Cardoso Dx/Rx/DC Orders Clinical Impression: Menorrhagia, Menstrual pain, Anemia due to blood loss Instructions: ED MENSTRUAL CRAMPING, ED Heavy Menstrual Bleeding Primary Care Provider: Care Physician,No Primary Referrals: Care Physician,No Primary [Primary Care Provider] - Activity Restrictions/Additional Instructions: Follow-up with your qa reviewer as needed. Print Language: Cymro Disposition Disposition: Home, Self Care
== END 2024-04-15 15:41 | disposition home or self-care (01) ==
PROVIDERS: Emergency Provider Emergency Medicine; Visit Provider Emergency Medicine
DX: N92.0 Excessive and frequent menstruation with regular cycle (principal); D50.0 Iron deficiency anemia secondary to blood loss (chronic); Z87.891 Personal history of nicotine dependence; Z87.59 Personal history of other complications of pregnancy, childbirth and the puerperium; N93.9 Abnormal uterine and vaginal bleeding, unspecified; N94.6 Dysmenorrhea, unspecified
CPT/HCPCS: 84703; 85014; 85018; 99283